=== PATIENT | female | born 1980 | race African-American/Black ===

== ENCOUNTER 2024-03-18 08:25 | Outpatient (CLI) | payer OTHER | END 2024-03-18 08:26 | disposition home or self-care (01) | LOC: ULT 08:25 | PROVIDERS: ATTEND Family Medicine | DX: N92.0 Excessive and frequent menstruation with regular cycle (principal); R14.0 Abdominal distension (gaseous); D25.9 Leiomyoma of uterus, unspecified; K76.0 Fatty (change of) liver, not elsewhere classified | CPT/HCPCS: 76700; 76856 ==